=== PATIENT | female | born 1970 | race Hispanic/Latino ===

== ENCOUNTER 2022-07-24 17:09 | Inpatient (IN) | payer OTHER ==
[~2022-07-24] VITALS: Ht 160 cm; Wt 119.4 kg
[2022-07-24] MEDS ORDERED: ACETAMINOPHEN 500 MG TABLET PO ONE (17:30)
[2022-07-24] MEDS ORDERED: IBUPROFEN 800 MG TAB PO ONE (17:30)
[2022-07-24] MEDS ORDERED: 0.9%NACL 1000ML 1,000 ML IV ONE (18:30)
[2022-07-24] MEDS ORDERED: ONDANSETRON 4MG INJ IVP ONE ×2 (18:30→23:00)
[2022-07-24 18:38] LABS: BASOPHILS % (AUTO) 0.3 % (0.0-5.0); EOSINOPHILS % (AUTO) 0.1 % (0.0-8.0); HEMATOCRIT 35.3 % (36-48); LYMPHOCYTES % (AUTO) 11.5 % (21.0-51.0); MEAN CORPUSCULAR HEMOGLOBIN 27.4 pg (27.0-33.0); MEAN CORPUSCULAR VOLUME 85.7 fL (79-99); MONOCYTES % (AUTO) 4.4 % (3.0-13.0); PLATELET COUNT (AUTO) 225 K/uL (130-400); RED BLOOD CELL COUNT(AUTO) 4.12 MIL/uL (4.00-5.50); RED CELL DISTRIBUTION WIDTH 15.7 % (11.0-15.5); WHITE BLOOD COUNT (AUTO) 13.3 K/uL (4.8-10.8)
[2022-07-24 18:53] LABS: CREATININE 1.5 mg/dL (0.5-1.5); POTASSIUM 3.5 mmol/L (3.5-5.1)
[2022-07-24 18:57] LABS: ALBUMIN 3.1 g/dL (3.5-5.0); TOTAL PROTEIN, SERUM 7.2 g/dL (6.0-8.3)
[2022-07-24] MEDS ORDERED: IOHEXOL-350 75 ML VIAL IV ONE (21:35)
[2022-07-24] MEDS ORDERED: MORPHINE 4 MG SYG IVP ONE (23:00)
[2022-07-24] MEDS ORDERED: 0.9%NACL 50ML IV SCH (23:00)
[2022-07-24] MEDS ORDERED: ZOSYN 3.375GM +NS 50ML IVPB SCH (23:00)
[2022-07-24] MEDS ORDERED: ONDANSETRON 4MG INJ IV PRN (23:30)
[2022-07-24] MEDS ORDERED: ACETAMINOPHEN 325 MG TAB PO PRN ×2 (23:30)
[2022-07-24] MEDS ORDERED: LACTULOSE 20 GM/30 ML UDCUP PO PRN (23:30)
[2022-07-24] MEDS ORDERED: MORPHINE 2 MG SYG IV PRN (23:30)
[2022-07-24] MEDS: 0.9%NACL 1000ML 1,000 ML IV SCH (23:30)
[2022-07-25] MEDS ORDERED: 0.9%NACL 1000ML 1,503 ML IV ONE (00:30)
[2022-07-25] MEDS ORDERED: NOREPINEPHRIN 4MG/NS 250ML 250 ML IV SCH (01:00)
[2022-07-25] MEDS ORDERED: LIDOCAINE HCL 1% 20 ML VIAL ONE (01:18)
[2022-07-25 01:27] LABS: APPEARANCE,URINE CLEAR (CLEAR); BILIRUBIN,URINE NEGATIVE (NEGATIVE); COLOR,URINE YELLOW (YELLOW); GLUCOSE, URINE (UA) NEGATIVE (NEGATIVE); KETONES,URINE NEGATIVE (NEGATIVE); LEUKOCYTE ESTERASE ,URINE NEGATIVE Leu/uL (NEGATIVE); NITRATE,URINE NEGATIVE (NEGATIVE); OCCULT BLOOD,URINE NEGATIVE (NEGATIVE); PH,URINE 5.5 (5.0-8.0); PROTEIN,URINE 30 mg/dL (NEGATIVE); UROBILINOGEN,URINE 0.2 mg/dL (0.2-1.0)
[2022-07-25 04:16] LABS: ABG BASE EXCESS -7.6 mmol/L (-2.0-3.0); ABG HCO3 17.4 mmol/L (21.0-28.0); ABG OXYGEN SATURATION 96.6 % (95.0-99.0); ABG PCO2 34 mmHg (32-45)
[2022-07-25] MEDS ORDERED: ZOSYN 3.375GM+NS 50ML 50 ML IVPB SCH (05:00)
[2022-07-25 08:00] LABS: BASOPHILS % (AUTO) 0.3 % (0.0-5.0); EOSINOPHILS % (AUTO) 0.3 % (0.0-8.0); HEMATOCRIT 34.3 % (36-48); MEAN CORPUSCULAR HEMOGLOBIN 27.3 pg (27.0-33.0); MEAN CORPUSCULAR HGB CONC 31.8 g/dL (32.0-36.0); MONOCYTES % (AUTO) 4.9 % (3.0-13.0); NEUTROPHILS % (AUTO) 83.9 % (40.0-77.0); PLATELET COUNT (AUTO) 194 K/uL (130-400); RED BLOOD CELL COUNT(AUTO) 3.99 MIL/uL (4.00-5.50); RED CELL DISTRIBUTION WIDTH 15.7 % (11.0-15.5); WHITE BLOOD COUNT (AUTO) 10.7 K/uL (4.8-10.8)
[2022-07-25 08:16] LABS: POTASSIUM 3.4 mmol/L (3.5-5.1)
[2022-07-25] MEDS ORDERED: IRBE300T18 PO (08:50)
[2022-07-25 08:53] LABS: CRP QUANTITATIVE 255.3 mg/L (0.00-9.0)
[2022-07-25] MEDS: 0.9%NACL 1000ML 1,000 ML IV SCH ×2 (09:05→20:10)
[2022-07-25] MEDS: FAMOTIDINE 20MG VIAL IV SCH ×2 (09:05→20:08)
[2022-07-25 13:12] LABS: % IRON SATURATION 4.1 % (22-44)
[2022-07-25] MEDS: ZOSYN 3.375GM+NS 50ML 50 ML IVPB SCH ×4 (13:56→22:28)
[2022-07-25] MEDS ORDERED: MAGNESIUM 2GM PREMIX 50ML 50 ML IV SCH (15:00)
[2022-07-25] MEDS ORDERED: POTASSIUM CHLORIDE 20MEQ/100ML 100 ML IV PRN (15:00)
[2022-07-25 17:00] VITALS: BP 131/60
[2022-07-25 19:51] VITALS: BP 143/68
[2022-07-26 04:00] LABS: BASOPHILS % (AUTO) 0.3 % (0.0-5.0); EOSINOPHILS % (AUTO) 4.5 % (0.0-8.0); HEMATOCRIT 30.3 % (36-48); MEAN CORPUSCULAR HEMOGLOBIN 26.7 pg (27.0-33.0); MEAN CORPUSCULAR VOLUME 86.1 fL (79-99); NEUTROPHILS % (AUTO) 69.6 % (40.0-77.0); PLATELET COUNT (AUTO) 154 K/uL (130-400); RED BLOOD CELL COUNT(AUTO) 3.52 MIL/uL (4.00-5.50); RED CELL DISTRIBUTION WIDTH 15.6 % (11.0-15.5); WHITE BLOOD COUNT (AUTO) 6.5 K/uL (4.8-10.8)
[2022-07-26 04:28] LABS: ALBUMIN 2.2 g/dL (3.5-5.0); CREATININE 0.7 mg/dL (0.5-1.5); MAGNESIUM 1.8 mg/dL (1.80-2.40); POTASSIUM 3.8 mmol/L (3.5-5.1); TOTAL PROTEIN, SERUM 5.9 g/dL (6.0-8.3)
[2022-07-26] MEDS: ZOSYN 3.375GM+NS 50ML 50 ML IVPB SCH ×3 (05:16→21:22)
[2022-07-26] MEDS: 0.9%NACL 1000ML 1,000 ML IV SCH ×2 (05:17→13:14)
[2022-07-26 05:56] VITALS: BP 149/76
[2022-07-26 08:00] VITALS: BP 128/70
[2022-07-26] MEDS: FAMOTIDINE 20MG VIAL IV SCH ×2 (08:13→21:21)
[2022-07-26 11:57] VITALS: BP 130/79
[2022-07-26 16:00] VITALS: BP 142/93
[2022-07-26 20:14] VITALS: BP 171/83
[2022-07-26 21:22] VITALS: BP 137/69
[2022-07-27 00:01] VITALS: BP 145/82
[2022-07-27 04:00] VITALS: BP 153/83
[2022-07-27] MEDS: 0.9%NACL 1000ML 1,000 ML IV SCH (04:12)
[2022-07-27] MEDS: ZOSYN 3.375GM+NS 50ML 50 ML IVPB SCH (04:12)
[2022-07-27 06:54] LABS: ALBUMIN 2.3 g/dL (3.5-5.0); CREATININE 0.7 mg/dL (0.5-1.5); MAGNESIUM 1.5 mg/dL (1.80-2.40); POTASSIUM 3.6 mmol/L (3.5-5.1); TOTAL PROTEIN, SERUM 6.1 g/dL (6.0-8.3)
[2022-07-27 07:01] LABS: HEMATOCRIT 28.2 % (36-48); MEAN CORPUSCULAR HEMOGLOBIN 27.5 pg (27.0-33.0); MEAN CORPUSCULAR VOLUME 83.4 fL (79-99); RED BLOOD CELL COUNT(AUTO) 3.38 MIL/uL (4.00-5.50); WHITE BLOOD COUNT (AUTO) 4.7 K/uL (4.8-10.8)
[2022-07-27 08:00] VITALS: BP 119/75
[2022-07-27] MEDS: FAMOTIDINE 20MG VIAL IV SCH (09:28)
[2022-07-27 11:55] VITALS: BP 107/62
== END 2022-07-27 12:45 | disposition home or self-care (01) | DRG 391 ==
LOC: EDH 17:09 → EDHIP 17:10 → 2AH 07-25 16:08 → 3BH 07-27 00:28
PROVIDERS: ADMIT Hospitalist; ATTEND Hospitalist
DX: A08.8 Other specified intestinal infections (principal); R65.11 Systemic inflammatory response syndrome (SIRS) of non-infectious origin with acute organ dysfunction; E87.1 Hypo-osmolality and hyponatremia; Z68.42 Body mass index [BMI] 45.0-49.9, adult; Z20.822 Contact with and (suspected) exposure to COVID-19; E66.01 Morbid (severe) obesity due to excess calories; I10 Essential (primary) hypertension; Z90.49 Acquired absence of other specified parts of digestive tract
CPT/HCPCS: 36415; 36600; 71045; 74177; 80048; 80053; 81003; 82306; 82550; 82607; 82803; 82948; 83540; 83550; 83605; 83615; 83690; 83735; 83874; 83993; 84145; 84484; 85025; 85027; 85651; 86140; 87040; 87046; 87635; 87804; 87880; C9803; G0378; J2405; J2543; J3475; J3480; J3490; J7030; Q9967